=== PATIENT | female | born 1940 | race Caucasian/White ===

== ENCOUNTER 2020-06-29 12:27 | Emergency (ER) | payer BC ==
[~2020-06-29] VITALS: Ht 157.5 cm; Wt 64.0 kg
[2020-06-29 12:29] VITALS: BP 116/90
[2020-06-29] MEDS ORDERED: AMLO5TAB4 PO (12:38)
== END 2020-06-29 13:51 | disposition home or self-care (01) ==
LOC: ER 12:27
DX: L20.9 Atopic dermatitis, unspecified (principal); I10 Essential (primary) hypertension; Z88.1 Allergy status to other antibiotic agents; Z88.2 Allergy status to sulfonamides; Z88.3 Allergy status to other anti-infective agents; Z88.8 Allergy status to other drugs, medicaments and biological substances
CPT/HCPCS: 99281; 99282